=== PATIENT | male | born 1955 | race Caucasian/White ===

== ENCOUNTER 2023-07-20 04:47 | Emergency (ER) | payer MEDICARE, OTHER, SELFPAY ==
[2023-07-20] VITALS (11 sets, daily range): BP systolic 103–150; BP diastolic 64–90; PULSE 61; O2SAT 99; BMI 26.5
[2023-07-20 05:40] LABS: % Basophils 0.2 % (0-2); % Eosinophils 1.2 % (0-6); % Immature Granulocytes 0.5 % (0-0.5); % Lymphocytes 8.3 % (20.5-51.1); % Monocytes 6.1 % (1.7-9.3); % Neutrophils 83.7 % (42.2-75.2); Absolute Eosinophils 0.2 10^3/uL (0-0.7); Absolute Immature Granulocytes 0.1 10^3/uL (0-0.05); Absolute Lymphocytes 1.1 10^3/uL (1.2-3.4); Absolute Monocytes 0.8 10^3/uL (0.1-0.6); Absolute Neutrophils 11.4 10^3/uL (1.4-6.5); Hematocrit 37.5 % (39.0-52.0); Hemoglobin 13.5 g/dL (13.0-18.0); Mean Corpuscular Hgb 31.8 pg (27.0-31.0); Mean Corpuscular Volume 88.2 fL (80.0-94.0); Mean Platelet Volume 9.2 fL (7.4-10.4); Nucleated Red Blood Cells % 0 % (-); Platelet Count 207 10^3/uL (130-400); Red Blood Cell Count 4.25 10^6/uL (4.70-6.10); Red Cell Dist. Width 13.4 % (11.5-14.5); White Blood Cell Count 13.7 10^3/uL (4.8-10.8)
[2023-07-20 05:50] LABS: ALT (SGPT) 20 U/L (0-50); AST (SGOT) 30 U/L (17-59); Albumin 4.1 g/dl (3.5-5.0); Alkaline Phosphatase 91 U/L (38-126); Blood Urea Nitrogen 18 mg/dl (9-20); Calcium 9.5 mg/dl (8.4-10.2); Carbon Dioxide 24 mmol/L (22-30); Chloride 105 mmol/L (98-107); Estimated Creatinine Clearance 69 ml/min; Glucose 110 mg/dl (70-99); Potassium 3.9 mmol/L (3.5-5.1); Sodium 138 mmol/L (135-145); Total Bilirubin 0.9 mg/dl (0.2-1.3); Total Protein 7.4 g/dl (6.3-8.2); eGFR > 60.00
[2023-07-20 06:02] LABS: Troponin I < 0.012 ng/ml
--- NOTE | 2023-07-20 06:11 | ED.GENMED ---
History of Present Illness
General
Chief Complaint: Fall
Source: patient and spouse
Exam Limitations: none
Time Seen by Provider: 07/20/23 06:04
Nursing documentation reviewed up to this point in time: agreed with
Travel History
Have you had any contact with someone who has COVID-19?: No
Do you have any symptoms of coronavirus? Fever > 100 degrees, chills, cough, shortness of breath, sore throat, loss of taste or smell, muscle aches, or headache?: No
History of Present Illness
History of Present Illness:
68 male metastatic melanoma finished immunotherapy developed pemphigoid treated with steroids which caused anxiety 's been giving CBD Gummies, he is on Dupixent, woke up but use the restroom at night felt a little dizzy fell injured his low back
and his right wrist no chest pain or shortness of breath no head strike does not appear to blood thinners has not been taking fluids very well due to oral pain related to his medications
Past History
Past History
ED Past Medical History: CVA (Melanoma) and Other (Arthritis)
ED Past Surgical History: None
Patient has exhibited threatening behavior?: No
Social History
Tobacco: Non-smoker
Alcohol: None
Drug: None
Personal:
Living: with family
Review of Systems
Review of Systems
All Other Systems: Not applicable
Constitutional: Reports fatigue; Denies fever
EENT: Reports no symptoms
Respiratory: Reports no symptoms
Cardiac: Reports no symptoms
ABD/GI: Reports no symptoms
: Reports no symptoms
Musculoskeletal: Reports joint pain and back pain
Skin: Reports no symptoms
Neurological: Reports dizzy
Endocrine: Reports no symptoms
Phy Exam
Physical Exam
Physical Exam:
Physical Exam
General: 68 male looks uncomfortable
Neck: No tongue bite no posterior neck
Heart: s1/s2 regular rate and rhythm, no murmur. equal radial pulses.
Lungs: no acute respiratory distress. clear bilaterally
Abdomen: Nontender
Back: Tender in the lumbar spine
Neuro: alert and oriented. no focal neurological deficits mild pain with range of motion of the right hip
Skin: no rash
Psychiatric: well kept. interactive and cooperative
Extremities: Superficial abrasion on the dorsum of the right wrist
Course
Orders/Labs/Results
Orders:
Orders
07/20/23 05:30
Complete Blood Count/With Diff Urgent
Comprehensive Metabolic Panel Urgent
Troponin I Urgent
07/20/23 05:31
EKG [Electrocardiogram (*1)] Urgent
Reason for Study: Syncope
07/20/23 05:32
EKG- Treatment ONCE
07/20/23 06:10
HYDROmorphone [Dilaudid] 1 mg IV NOW STA
Lumbar Spine, 2 or 3 View [CR Lumbar Spine 2 Or 3 Views] Urgent
Comment:
Reason For Exam: fall
Wrist, Right 3 Views [CR Wrist - Right Min 3 Views] Urgent
Comment:
Reason For Exam: fall
07/20/23 06:11
0.9% Sodium Chloride 1000 ml [Nss] 1,000 ml IV BOLUS
Pelvis, 1 or 2 Views CR [CR Pelvis - 1 Or 2 Views ] Urgent
Comment:
Reason For Exam: fall
07/20/23 07:56
Physical Therapy Consult [Pt Eval And Treat] Urgent
Activity Level: Out of Bed-Early Mobility
07/20/23 07:57
HYDROmorphone [Dilaudid] 1 mg IV NOW STA
Ketorolac [Toradol] 15 mg IV NOW STA
07/20/23 07:58
Wound Dressing- Treatment ONCE
Location of Wound: wrist
Abnormal Lab Results
07/20/23
05:30
WBC 13.7 H 10^3/uL
(4.8-10.8)
RBC 4.25 L 10^6/uL
(4.70-6.10)
Hct 37.5 L %
(39.0-52.0)
MCH 31.8 H pg
(27.0-31.0)
Abs Immat Gran (auto) 0.1 H 10^3/uL
(0-0.05)
Absolute Neuts (auto) 11.4 H 10^3/uL
(1.4-6.5)
Absolute Lymphs (auto) 1.1 L 10^3/uL
(1.2-3.4)
Absolute Monos (auto) 0.8 H 10^3/uL
(0.1-0.6)
Neutrophils % 83.7 H %
(42.2-75.2)
Lymphocytes % 8.3 L %
(20.5-51.1)
Glucose 110 H mg/dl
(70-99)
07/20/23 05:30
07/20/23 05:30
Vital Signs
Initial and Last Documented VS:
Initial Vital Signs
Temp Pulse Resp BP Pulse Ox
98.1 F 87 32 103/64 98
07/20/23 04:58 07/20/23 04:58 07/20/23 04:58 07/20/23 04:58 07/20/23 04:58
Last Documented Vital Signs
Temp Pulse Resp BP Pulse Ox
98.1 F 64 15 133/83 99
07/20/23 04:58 07/20/23 06:30 07/20/23 06:30 07/20/23 09:00 07/20/23 09:00
MDM/Problems Addressed
Differential Diagnosis Includes:
Vasoval wrist fracture lumbar spine strain, pelvic fracture dehydration
MDM/Problems Addressed:
Fall
Chronic conditions affecting care: Cancer
Acute Exacerbation and/or Progression of Chronic Illness: Cancer
*Radiology
Radiology exam reviewed: preliminary read by ED provider
*Pulse Oximetry
Patient hypoxic: no
*EKG
Interpreted by ED Provider?: Yes
Interpretation: abnormal
Comparison EKG: no comparison EKG present
Heart Rate: 78
Rate: normal
Rhythm: sinus
Ischemia: non-specific ST changes
*[place] Interpretation
Rate: normal
Interpretation: normal
Heart Rate: 78
Rhythm: sinus
*Critical Care Note
Total Time (30-74mins, 75-104mins- exclusive of procedures): Not Applicable
Update Note
Update Note:
Update x-rays noted looks like a lumbar compression fracture awaiting formal report
Patient still with some pain will redose some pain meds as physical therapy to work with him reviewed with patient and spouse apparently been on steroids for about a year he has an abnormal DEXA scan to see Dr. Christianson previously he was not known to
have a compression fracture previously
9:20 AM x-ray reports noted, age-indeterminate compression fracture PT is in the room evaluating the patient
Patient able to ambulate
ED Attending Note
-
Portions of this chart may have been created with voice recognition software.� Occasional wrong word or��sound alike� substitutions may have occurred due to the inherent limitations of voice recognition software.
Discharge Plan
Departure
Patient Disposition: Home (Routine Discharge)
Date of Disposition: 07/20/23
Time of Disposition: 09:49
Patient with high blood pressure during this ER visit?: No
Condition: Good
Covid-19: Not Applicable
Discharge Problem:
Compression fracture
Instructions: Vertebral compression fracture, Preventing falls in adults
Prescriptions:
New
oxycodone-acetaminophen [Percocet] 5-325 mg tablet
1 tab PO Q4HPRN PRN (Reason: pain) Qty: 20 0RF
docusate sodium [Colace] 100 mg capsule
100 mg PO TID Qty: 30 0RF
No Action
pantoprazole 40 mg Tablet,Delayed Release (Dr/Ec)
40 mg PO BID Qty: 60 1RF
prednisone 10 mg tablet
See Rx Instructions .ROUTE .COMPLEX Qty: 200 0RF
Rx Instructions:
take 70mg daily x 1 week, then 60mg daily x 1 week, then 50mg daily x 1 week. Taper down to 10mg daily x 1 week then stop.
calcium carbonate-vitamin D3 [Calcium 600 with Vitamin D3] 600 mg-12.5 mcg (500 unit) capsule
1 cap PO DAILY 60 Days Qty: 60 0RF
Rx Instructions:
Vit D + Calcium OTC equivalent
Referrals:
Laila Lucas PA-C [Family Provider] -
Interventions
Interventions:
*General Assessment Last Done: 07/20/23 04:58
*Neglect/Abuse Screening Last Done: 07/20/23 04:58
ED- Fall Risk Assessment Last Done: 07/20/23 04:58
*ED COVID-19 Vaccine History Last Done: 07/20/23 04:58
ED-Musculoskeletal Assessment Last Done: 07/20/23 05:16
ED- Neurological Assessment Last Done: 07/20/23 05:16
ED-Skin Assessment Last Done: 07/20/23 05:16
[2023-07-20] MEDS: DILAUDID 1 MG IV ×2 (06:15→08:09)
[2023-07-20] MEDS: NSS 1000 IV (06:16)
[2023-07-20] MEDS: TORADOL 15 MG IV (08:10)
== END 2023-07-20 10:10 | disposition home or self-care (01) ==
LOC: EMR 04:47
PROVIDERS: Student in an Organized Health Care Education/Training Program; EMERGENCY PHYSICIAN Emergency Medicine; FAMILY PHYSICIAN Physician Assistant
DX: S32.008A Other fracture of unspecified lumbar vertebra, initial encounter for closed fracture (principal); S60.811A Abrasion of right wrist, initial encounter; W19.XXXA Unspecified fall, initial encounter; C79.9 Secondary malignant neoplasm of unspecified site; Z85.820 Personal history of malignant melanoma of skin; Z86.73 Personal history of transient ischemic attack (TIA), and cerebral infarction without residual deficits
CPT/HCPCS: 99285; 96374; 96375; 96361; 96376; 72100; 72170; 73110; 80053; 84484; 85025; 93005

== ENCOUNTER → 2025-01-22 16:24 | Outpatient (REF) | payer MEDICARE, OTHER, SELFPAY ==
[2025-01-22 17:05] LABS: Urine Character Slightly Cloudy (Clear)
[2025-01-22 17:27] LABS: Urine Squamous Cell 0-2 /LPF (Few); Urine White Cell >100 /HPF (0-5)
== END ==
LOC: REG 16:24
PROVIDERS: ATTENDING PHYSICIAN Urology
DX: R39.9 Unspecified symptoms and signs involving the genitourinary system (principal)
CPT/HCPCS: 81003; 81015; 87086; 87147; 87186